=== PATIENT | male | born 1940 | race Hispanic/Latino ===

== ENCOUNTER 2018-03-30 15:07 | Inpatient (IN) | payer MEDICARE ==
[~2018-03-30] VITALS: Ht 162.6 cm; Wt 77.2 kg
[2018-03-30] MEDS ORDERED: SODIUM CHLORIDE 0.9% 1000ML 1,000 ML IV STA (15:17)
[2018-03-30] MEDS ORDERED: KETOROLAC TROMETHAMINE 30 MG/ML VIAL IV STA (15:17)
[2018-03-30] MEDS ORDERED: TAMSULOSIN HCL0.4 MG PO (15:25)
[2018-03-30] MEDS ORDERED: LOSARTAN POTASS25 MG PO (15:25)
[2018-03-30 15:50] LABS: BASOPHILS % 0.5 % (0.0-1.0); EOSINOPHILS % 0.5 % (0.0-6.0); HEMATOCRIT 45.6 % (38.2-49.6); HEMOGLOBIN 16.5 g/dL (14.0-18.0); LYMPHOCYTES # (AUTO) 1.8 (1.0-3.2); LYMPHOCYTES % 21.1 % (18.0-39.1); MEAN CORPUSCULAR HEMOGLOBIN 32.9 pg (28-32); MEAN CORPUSCULAR HGB CONC 36.2 g/dL (31-35); MEAN CORPUSCULAR VOLUME 90.8 fL (81-99); MONOCYTES # (AUTO) 0.7 (0.2-0.8); MONOCYTES % 7.7 % (4.4-11.3); NEUTROPHILS # (AUTO) 5.9 (2.1-6.9); NEUTROPHILS % 69.8 % (38.7-80.0); PLATELET COUNT 248 x10e3/uL (140-360); RED BLOOD COUNT 5.02 x10e6/uL (4.3-5.7); RED CELL DISTRIBUTION WIDTH 12.4 % (11.7-14.4)
[2018-03-30 15:54] LABS: CLARITY,URINE HAZY (CLEAR); COLOR,URINE ORANGE (YELLOW); LEUKOCYTE ESTERASE ,URINE NEGATIVE (NEGATIVE); NITRITE,URINE NEGATIVE (NEGATIVE); PROTEIN,URINE DIPSTICK 2+ (NEGATIVE)
[2018-03-30 15:55] LABS: BACTERIA,URINE FEW /HPF; BILIRUBIN,URINE 2+ (NEGATIVE); EPITHELIAL CELLS,URINE FEW /LPF; KETONES,URINE 1+ (NEGATIVE); URINE UROBILINOGEN 8 mg/dL (0.2 - 1)
[2018-03-30 16:05] LABS: ALANINE AMINOTRANSFERASE 110 IU/L (0-55); ALBUMIN 3.8 g/dL (3.5-5.0); ALBUMIN/GLOBULIN RATIO 1.1 (0.8-2.0); ALKALINE PHOSPHATASE 71 IU/L (40-150); AMYLASE 42 U/L (25-125); ANION GAP 13.8 mmol/L (8-16); BLOOD UREA NITROGEN 20 mg/dL (7-26); BUN/CREATININE RATIO 24 (6-25); CALCIUM 9.4 mg/dL (8.4-10.2); CARBON DIOXIDE 25 mmol/L (22-29); CHLORIDE 101 mmol/L (98-107); CREATININE, SERUM 0.84 mg/dL (0.72-1.25); EST GLOMERULAR FILTRATION RATE > 60 ML/MIN (60-); GLUCOSE 113 mg/dL (74-118); LIPASE 40 U/L (8-78); POTASSIUM 3.8 mmol/L (3.5-5.1); SODIUM 136 mmol/L (136-145)
--- NOTE | 2018-03-30 17:27 | Diagnostic Imaging Report ---
EXAMINATION: CT of the abdomen and pelvis with contrast. TECHNIQUE: Spiral CT images of the abdomen and pelvis were performed from the lung bases to the lesser trochanters after the intravenous administration of 100 cc of Isovue 370 and the oral administration of water. Coronal and sagittal reformatted images were obtained. COMPARISON: None. CLINICAL HISTORY:Diarrhea, vomiting, abdominal pain DISCUSSION: ABDOMEN/PELVIS: LOWER THORAX:Unremarkable. HEPATOBILIARY: Scattered well-circumscribed fluid density lesions in the hepatic parenchyma, with the largest located in hepatic segment V measuring 6.1 x 5.6 x 6.4 cm, consistent with simple cysts. No intrahepatic biliary ductal dilation. Mild dilation of the common bile duct, which measures approximately 10 mm at the tete hepatis. No radiopaque intraluminal filling defects. Normal contour and tapering to the ampulla. GALLBLADDER: Cholecystectomy clips. SPLEEN: No splenomegaly. PANCREAS: No focal masses or ductal dilatation. ADRENALS: No adrenal nodules. KIDNEYS/URETERS: No hydronephrosis, stones, or solid mass lesions. PELVIC ORGANS/BLADDER: Bladder is unremarkable. Prostatic enlargement with central dystrophic calcifications.. PERITONEUM/RETROPERITONEUM: No free air or fluid. LYMPH NODES: No intra-abdominal, retroperitoneal, pelvic or inguinal lymphadenopathy. VESSELS: The celiac trunk,superior and inferior mesenteric and bilateral renal arteries are patent The portal, superior mesenteric and splenic veins are patent. Atherosclerotic calcification of the abdominal aorta and vessels. GI TRACT: Oral contrast is noted in the large bowel, likely from prior exam, as no positive oral contrast was given for this examination. Multiple mildly to moderately dilated air and fluid-filled loops of small bowel are noted in the abdomen involving predominantly the proximal and mid ileum, with maximal measurement of 3.9 cm. The distal ileum including the terminal ileum are decompressed. There is no well-defined transition point, with gradual tapering to normal caliber noted in the mid to distal ileum at the anterior peritoneal cavity (series 2, images 57-65). Large bowel is normal in caliber. Extensive diverticulosis predominantly involving the descending and sigmoid colon, without diverticulitis. Appendix is identified and normal in caliber. BONES AND SOFT TISSUE: No aggressive lytic lesions. Soft tissues are grossly unremarkable. No soft tissue abnormalities. IMPRESSION: 1. Mildly to moderately dilated air and fluid-filled loops of proximal and mid ileum, with gradual tapering to normal caliber in the mid to distal ileum at the anterior peritoneal cavity without a definite transition point. No focal lesion is identified. This is suggestive of ileus. 2. Colonic diverticulosis, without diverticulitis. 3. Hepatic simple cysts, with the largest measuring approximately 6.4 cm. Signed by: Dr. Sandeep Mayer M.D. on 03/30/2018 5:24 PM
[2018-03-30] MEDS ORDERED: MORPHINE SULFATE 2 MG/ML SYR IV PRN (18:45)
[2018-03-30] MEDS ORDERED: ONDANSETRON HCL INJ 2 MG/ML VIAL IV PRN (18:45)
[2018-03-30] MEDS ORDERED: MORPHINE SULFATE INJ 4 MG/ML INJ IV PRN (19:00)
[2018-03-30] MEDS ORDERED: HYDRALAZINE HCL 20 MG/ML VIAL IV PRN (19:15)
[2018-03-30] MEDS ORDERED: LORAZEPAM INJ 2 MG/ML VIAL IV PRN (19:15)
[2018-03-30] MEDS ORDERED: IOPAMIDOL 370 MG/ML 200 ML INFUS..BTL INJ ONE (19:27)
[2018-03-30] MEDS ORDERED: SODIUM CHLORIDE 0.9% 50ML 50 ML ONE (19:27)
[2018-03-30] MEDS: PIPERACILLIN/TAZO 2.25 GM 50 ML IV SCH (19:31)
[2018-03-30] MEDS: D5.45%NS/KCL 20MEQ 1,000 ML IV SCH (19:31)
[2018-03-30] MEDS ORDERED: SODIUM CHLORIDE 0.9% 1000ML 1,000 ML ONE (19:35)
[2018-03-30] MEDS: METRONIDAZOLE 500MG/NS 100ML IV SCH (20:05)
--- NOTE | 2018-03-30 20:06 | History and Physical ---
CHIEF COMPLAINT: Abdominal distention, nausea and vomiting. HISTORY OF PRESENT ILLNESS: The patient is a 77-year-old man. He has a history of a prior cholecystectomy. He notes intermittent abdominal pain for 4 to 5 days as well as some diarrhea. Over the past 2 days, he has had more abdominal distention and has not moved his bowels. He does not complain of fevers. PAST SURGICAL HISTORY: Status post cholecystectomy. PAST MEDICAL HISTORY: Hypertension. SOCIAL HISTORY: The patient has never been a smoker. He is not a drinker. He has no recent travel. FAMILY HISTORY: Family history is noncontributory. ALLERGIES: THE PATIENT IS ALLERGIC TO CLINDAMYCIN AND IBUPROFEN. REVIEW OF SYSTEMS: The patient does not have any fevers. There is no headache. He has no neck pain. He is not complaining of sore throat. He has no cough or difficulty breathing. He denies chest pain. He does have some abdominal distention as well as nausea and vomiting as well as some diarrhea. He has no leg edema. He has no focal neurological complaints. PHYSICAL EXAMINATION VITAL SIGNS: The patient is febrile. The blood pressure 171/90, pulse is 78, saturation is 97%. HEENT: Shows no facial swelling or erythema. The nasal mucosa is normal. The oropharynx is normal. LYMPHATIC: Shows no submandibular, cervical, or supraclavicular adenopathy. NECK: Shows no JVD or thyromegaly. There is no nuchal rigidity. CARDIAC: Reveals regular rate and rhythm with normal S1 and S2. There are no murmurs or rubs. RESPIRATORY: Auscultation of lungs reveals clear breath sounds bilaterally. There is no wheezing. ABDOMEN: Distended. It is soft. He has no focal tenderness. EXTREMITIES: He has no leg edema. NEUROLOGIC: He has no focal neurological abnormalities. LABORATORY DATA: White blood cell count is 8.4 and hemoglobin 16.5. The platelet count is 248. The BUN to creatinine ratio is 20 to 0.84 and other electrolytes are within normal limits. Total bilirubin is 2.3, AST is 82, and ALT is 110. RADIOGRAPHIC DATA: Abdominal pelvic CT scan shows [id number] dilated loops of small intestine consistent with an ileus. IMPRESSION 1. Ileus versus small bowel obstruction. 2. Elevated bilirubin. 3. Nausea and vomiting leading to dehydration. 4. Hypertension. PLAN 1. IV fluids. 2. IV antibiotics. 3. Surgical and GI consultation 4. Control blood pressure as needed. Job#: [id number] GREG
--- OUTSIDE RECORDS SUMMARY | 2018-03-30 20:29 | XMS REPORT ---
Author Author [facility] Address Unknown Phone Unavailable Care Team Providers [facility] Safety Officer Name Role Phone Gregory SALCIDO Unavailable Unavailable Problems This patient has no known problems. Allergies, Adverse Reactions, Alerts This patient has no known allergies or adverse reactions. Medications This patient has no known medications. Results Test Description Test Time Test Comments Text Results Atomic Results Result Comments CT ABDOMEN/PELVIS W 2018-03-30 17:09:00 [place] [address] Patient Name: RADHA CLARK MR #: [id number] : 1940 Age/Sex: 77/M Req #: [id number] Adm Physician: Ordered by: CATRACHITO SALCIDO MD Report #: [id number] Location: ER Room/Bed: Procedure: [id number] CT/CT ABDOMEN/PELVIS W Exam Date: 03/30/18 Exam Time: 1643 REPORT STATUS: Signed EXAMINATION: CT of the abdomen and pelvis with vicki guerrero. TECHNIQUE: Spiral CT images of the abdomen and pelvis were performed from the lung bases to the lesser trochanters after the intravenous administration of 100 cc of Isovue 370 and the oral administration of water. Coronal and sagittal reformatted images were obtained. COMPARISON: None. CLINICAL HISTORY:Diarrhea, vomiting, abdominal pain DISCUSSION: ABDOMEN/PELVIS: LOWER THORAX:Unremarkable. HEPATOBILIARY: Scattered well-circumscribed fluid density lesions in the hepatic parenchyma, with the largest located in hepatic segment V measuring 6.1 x 5.6 x 6.4 cm, consistent with simple cysts. No intrahepatic biliary ductal dilation. Mild dilation of the common bile duct, which measures approximately 10 mm at the tete hepatis. No radiopaque intraluminal filling defects. Normal contour and tapering to the ampulla. GALLBLADDER: Cholecystectomy clips. SPLEEN: No splenomegaly. PANCREAS: No focal masses or ductal dilatation. ADRENALS: No adrenal nodules. KIDNEYS/URETERS: No hydronephrosis, stones, or solid mass lesions. PELVIC ORGANS/BLADDER: Bladder is unremarkable. Prostatic enlargement with central dystrophic calcifications.. PERITONEUM/RETROPERITONEUM: No free air or fluid. LYMPH NODES: No intra- abdominal, retroperitoneal, pelvic or inguinal lymphadenopathy. VESSELS: The celiac trunk,superior and inferior mesenteric and bilateral renal arteries are patent The portal, superior mesenteric and splenic veins are patent. Atherosclerotic calcification of the abdominal aorta and vessels. GI TRACT: Oral contrast is noted in the large bowel, likely from prior exam, as no positive oral contrast was given for this examination. Multiple mildly to moderately dilated air and fluid-filled loops of small bowel are noted in the abdomen involving predominantly the proximal and mid ileum, with maximal measurement of 3.9 cm. The distal ileum including the terminal ileum are decompressed. There is no well-defined transition point, with gradual tapering to normal caliber noted in the mid to distal ileum at the anterior peritoneal cavity (series 2, images 57-65). Large bowel is normal in caliber. Extensive diverticulosis predominantly involving the descending and sigmoid colon, without diverticulitis. Appendix is identified and normal in caliber. BONES AND SOFT TISSUE: No aggressive lytic lesions. Soft tissues are grossly unremarkable. No soft tissue abnormalities. IMPRESSION: 1. Mildly to moderately dilated air and fluid-filled loops of proximal and mid ileum, with gradual tapering to normal caliber in the mid to distal ileum at the anterior peritoneal cavity without a definite transition point. No focal lesion is identified. This is suggestive of ileus. 2. Colonic diverticulosis, without diverticulitis. 3. Hepatic simple cysts, with the largest measuring approximately 6.4 cm. Signed by: Dr. Don Mayer M.D. on 03/30/2018 5:24 PM Dictated By: DON MAYER MD 23 Transcribed By: RUSTY on 03/30/181723 COPY TO: CATRACHITO SALCIDO MD
[2018-03-30 20:46] LABS: BASOPHILS # (AUTO) 0.1 (0.0-0.1); BASOPHILS % 0.6 % (0.0-1.0); EOSINOPHILS % 0.4 % (0.0-6.0); HEMATOCRIT 41.3 % (38.2-49.6); HEMOGLOBIN 14.6 g/dL (14.0-18.0); LYMPHOCYTES # (AUTO) 2.2 (1.0-3.2); LYMPHOCYTES % 22.9 % (18.0-39.1); MEAN CORPUSCULAR HEMOGLOBIN 32.4 pg (28-32); MEAN CORPUSCULAR HGB CONC 35.4 g/dL (31-35); MEAN CORPUSCULAR VOLUME 91.8 fL (81-99); MONOCYTES # (AUTO) 0.8 (0.2-0.8); MONOCYTES % 8.4 % (4.4-11.3); NEUTROPHILS # (AUTO) 6.4 (2.1-6.9); NEUTROPHILS % 67.3 % (38.7-80.0); PLATELET COUNT 211 x10e3/uL (140-360); RED CELL DISTRIBUTION WIDTH 12.4 % (11.7-14.4)
[2018-03-30 21:15] VITALS: BP 184/86
--- NOTE | 2018-03-30 21:18 | NUR ---
Pt received from the ER. Pt A&O and in no apparent distress. Pt on RA and no tele. All safety measures ensured, bed alarm on, and pt call bel near. Pt encouraged to use call claire for assistance.
[2018-03-30 21:25] VITALS: BP 184/86
[2018-03-31] VITALS (9 sets, daily range): BP systolic 125–144; BP diastolic 52–71
[2018-03-31] MEDS: METRONIDAZOLE 500MG/NS 100ML IV SCH ×5 (00:36→23:01)
[2018-03-31] MEDS: PIPERACILLIN/TAZO 2.25 GM 50 ML IV SCH ×5 (01:39→17:22)
[2018-03-31 05:25] LABS: BASOPHILS # (AUTO) 0.1 (0.0-0.1); BASOPHILS % 1.2 % (0.0-1.0); EOSINOPHILS # (AUTO) 0.1 (0.0-0.4); EOSINOPHILS % 1.2 % (0.0-6.0); HEMOGLOBIN 13.9 g/dL (14.0-18.0); LYMPHOCYTES # (AUTO) 2.3 (1.0-3.2); LYMPHOCYTES % 27.8 % (18.0-39.1); MEAN CORPUSCULAR HEMOGLOBIN 32.3 pg (28-32); MEAN CORPUSCULAR HGB CONC 35.6 g/dL (31-35); MEAN CORPUSCULAR VOLUME 90.7 fL (81-99); MONOCYTES # (AUTO) 0.9 (0.2-0.8); MONOCYTES % 10.3 % (4.4-11.3); NEUTROPHILS # (AUTO) 4.9 (2.1-6.9); NEUTROPHILS % 58.8 % (38.7-80.0); PLATELET COUNT 218 x10e3/uL (140-360); RED CELL DISTRIBUTION WIDTH 12.4 % (11.7-14.4)
[2018-03-31 05:47] LABS: ALANINE AMINOTRANSFERASE 97 IU/L (0-55); ALBUMIN 3.2 g/dL (3.5-5.0); ALBUMIN/GLOBULIN RATIO 1.1 (0.8-2.0); ALKALINE PHOSPHATASE 59 IU/L (40-150); ANION GAP 11.8 mmol/L (8-16); BLOOD UREA NITROGEN 17 mg/dL (7-26); BUN/CREATININE RATIO 18 (6-25); CALCIUM 8.6 mg/dL (8.4-10.2); CARBON DIOXIDE 24 mmol/L (22-29); CHLORIDE 105 mmol/L (98-107); CREATININE, SERUM 0.92 mg/dL (0.72-1.25); EST GLOMERULAR FILTRATION RATE > 60 ML/MIN (60-); GLUCOSE 101 mg/dL (74-118); POTASSIUM 3.8 mmol/L (3.5-5.1); SODIUM 137 mmol/L (136-145)
--- NOTE | 2018-03-31 06:45 | NUR ---
Walking rounds and report received from night nurse. POC discussed. Patient was instructed to call for assistance as needed and verbalized understanding. Call claire within reach.
[2018-03-31] MEDS: D5.45%NS/KCL 20MEQ 1,000 ML IV SCH ×2 (07:53→18:35)
--- NOTE | 2018-03-31 12:27 | Consultation ---
DATE OF CONSULTATION: March 31, 2018 HISTORY: A 77 years old who presented to the hospital because of several days' history of abdominal pain along with some diarrhea. Patient has also had some nausea and vomiting. The workup so far revealed that the CBC was okay. The chemistry showed elevated serum liver function tests with bilirubin of 2.3, AST of 82, and ALT 110. He had a CAT scan of abdomen and pelvis, which shows possible ileus or early small-bowel obstructions along with diverticulosis as well as a liver cyst. He denies any history of alcohol use or any history of hepatitis in the past. MEDICAL PROBLEMS: Significant for history of hypertension, status post cholecystectomy. ALLERGIES: TO CLINDAMYCIN AND IBUPROFEN. SOCIAL HISTORY: Denies any alcohol use. FAMILY HISTORY: Noncontributory. REVIEW OF SYSTEMS: Denies any chest pain. No shortness of breath. Denies any dysphagia or odynophagia. Denies any dysuria, hematuria or any kind of syncopal episode. PHYSICAL EXAMINATION GENERAL: Awake, alert, appears to be stable, not in acute distress at this point. VITAL SIGNS: Afebrile currently with stable vital signs. HEENT: Normocephalic, atraumatic. Sclerae are anicteric. NECK: Supple. HEART: Sounds regular. ABDOMEN: Soft. Somewhat distended. Tympanitic to percussion. EXTREMITIES: Show no clubbing. LAB VALUES: As of today, CBC is okay. Chemistry; bilirubin 2.0, AST of 55, ALT of 37. CAT scan as mentioned before. IMPRESSION 1. Abdominal pain, nausea, vomiting, and also diarrhea. Rule out possibility of gastroenteritis with possible ileus. 2. Elevated liver function tests, rule out hepatitis. RECOMMENDATIONS: I will obtain an liver x-ray today. Follow labs, also ultrasounds. Hepatitis workup. Follow up clinically. Job#: [id number] LPA cc:RADHA CHILEL MD
--- NOTE | 2018-03-31 13:21 | Diagnostic Imaging Report ---
KUB - 2 views Clinical History: Follow-up ileus versus small bowel obstruction. Comparison: CT abdomen/pelvis 03/30/2018. Findings: Persistent mildly dilated mid abdominal small bowel loops, measuring up to 4 cm. Non-dilated distal ileal loops. Air and contrast is seen within a nondistended colon. No evidence of free intracranial air. Cholecystectomy clips are present. No acute bony findings. Impression: Persistent mildly dilated small bowel loops. Air and contrast seen within nondistended colon. Findings could represent low-grade partial small bowel obstruction or ileus and continued follow-up is suggested. Signed by: Dr. Nikolay Harris MD on 03/31/2018 1:18 PM
--- NOTE | 2018-03-31 14:42 | NUR ---
Nutrition Screen Note RD Recommendation for Physician: Advance diet as tolerated Plan of Care: RD following, monitoring for adequacy and tolerance Nutrition reason for involvement: Nutrition Risk Trigger- MST Primary Diagnose(s): acute abdominal pain with ileus/SBO Ht:64 in Wt:180lbs BMI:30.9 kg/m2 IBW:130lbs RD Assessment:(03/31/2018) Initial encounter with patient. Pt was NPO at time of visit and diet has been advanced to a clear liquid diet. Pt was wanting to know when he was going to be able to start eating. No BM in over 3 days. Pt denies any nausea. Current Diet: Clear liquid Malnutrition Evaluation (03/31/2018) The patient does not meet criteria for a specified degree of malnutrition at this time. Will re-evaluate at follow-up as appropriate. Diet Education Needs Assessment: Diet education not indicated. Diet Adequacy: Not meeting calorie needs, Not meeting protein needs) Tolerance: NPO Nutrition Care Level: moderate Sunny Watts RD, LD, CNSC
--- NOTE | 2018-03-31 15:30 | Consultation ---
DATE OF CONSULTATION: March 31, 2018 DICTATION ENDS ABRUPTLY Job#: [id number] PUN
[2018-03-31 17:15] LABS: OCCULT BLOOD STOOL NEGATIVE (NEGATIVE)
[2018-03-31] MEDS: LOSARTAN POTASSIUM 25 MG TAB PO SCH (17:19)
--- NOTE | 2018-03-31 18:30 | NUR ---
Dr. Celis making rounds. POC discussed and all questions answered by .
--- NOTE | 2018-03-31 18:58 | NUR ---
Report received and walking rounds complete. Pt resting in bed watching tv and in no apparent distress. All safety measures ensured, bed alarm on, and pt call claire near. Pt encouraged to use call claire for assistance.
[2018-03-31] MEDS: TAMSULOSIN HCL 0.4 MG CAP PO SCH (20:43)
[2018-04-01] MEDS: PIPERACILLIN/TAZO 2.25 GM 50 ML IV SCH ×4 (00:34→18:11)
[2018-04-01] MEDS: METRONIDAZOLE 500MG/NS 100ML IV SCH ×4 (05:11→23:10)
[2018-04-01 05:30] VITALS: BP 119/59
--- NOTE | 2018-04-01 05:58 | NUR ---
Pt off unit for radiology
[2018-04-01 05:59] LABS: ALBUMIN 3.2 g/dL (3.5-5.0); BILIRUBIN,DIRECT 0.6 mg/dL (0.0-0.5)
--- NOTE | 2018-04-01 06:18 | Diagnostic Imaging Report ---
ABDOMEN ACUTE SERIES W/PA CXR Clinical history: Ileus Technique: AP view abdomen, supine and upright, PA chest Comparison: Previous day Findings: Abdomen: Persistent mild gaseous distention of small bowel. Gas is seen within decompressed colon. No evidence of free air. Cholecystectomy clips. Other: Normal cardiac silhouette. Prominent mediastinal fat. No consolidation or edema. No effusion or pneumothorax. Impression: Stable findings which may reflect partial obstruction. Signed by: Dr Eduarda Armijo MD on 04/01/2018 6:15 AM
[2018-04-01 07:00] VITALS: BP 138/68
--- NOTE | 2018-04-01 07:04 | NUR ---
Report given to oncoming nurse
--- NOTE | 2018-04-01 08:00 | NUR ---
Patient ambulating in room without any complaints.
[2018-04-01] MEDS ORDERED: BISACODYL 5 MG TAB EC PO NR (08:30)
[2018-04-01] MEDS: LOSARTAN POTASSIUM 25 MG TAB PO SCH ×2 (08:37→17:16)
[2018-04-01] MEDS: D5.45%NS/KCL 20MEQ 1,000 ML IV SCH ×2 (10:33→23:53)
[2018-04-01 11:24] VITALS: BP 155/82
[2018-04-01 15:22] LABS: C DIFFICILE TOXIN A&B AMP PROB NEGATIVE (NEGATIVE)
[2018-04-01 16:00] VITALS: BP 162/79
--- NOTE | 2018-04-01 17:00 | NUR ---
U/S tech at the bedside.
--- NOTE | 2018-04-01 18:32 | Diagnostic Imaging Report ---
EXAM: Complete Abdominal Ultrasound INDICATION: ^Elevated LFT COMPARISON: CT abdomen and pelvis 03/30/2018 TECHNIQUE: Transverse and longitudinal images of the upper abdomen were obtained. FINDINGS: Liver: Size: 13.8 cm in the right midclavicular line, normal Appearance: Normal echogenicity, smooth contour Mass: 5.2 x 4.4 x 3.6 cm cystic, echoic lesion in the right hepatic lobe. Spleen: Size: 10.4 cm in length, normal Echogenicity: Normal Mass: No focal masses Gallbladder: Absent. Sonographic Chi's Sign: Negative Bile Ducts: Intrahepatic Ducts: No dilatation Extrahepatic Ducts: Common bile duct measures 0.3 cm, no dilatation Pancreas: Visualized portions of the neck and proximal body are unremarkable. Kidneys: Length: Right 11.2 cm Left 11.0 cm Echogenicity: Normal Collecting System: No hydronephrosis Stone: None Cyst/Mass: None Vessels: Aorta: Visualized portions are normal Inferior Vena Cava: Visualized portions are normal Main Portal Vein: 0.8 cm, normal size with hepatopetal flow. Free Fluid: No ascites or pleural effusion IMPRESSION: 1. 5.2 cm simple cystic lesion in the right hepatic lobe, previously described on CT dated 03/30/2018 2. Status post cholecystectomy. Signed by: Dr. Sandeep Mayer M.D. on 04/01/2018 6:29 PM
--- NOTE | 2018-04-01 18:40 | NUR ---
Report given to oncoming shift. Call claire within reach.
--- NOTE | 2018-04-01 18:58 | NUR ---
Report received and walking rounds complete. Pt resting in bed and in apparent distress. Pt at bedside. All safety measures ensured, bed alarm on, and pt call claire near. Pt encouraged to use call claire for assistance.
[2018-04-01 19:43] VITALS: BP 154/73
[2018-04-01] MEDS: TAMSULOSIN HCL 0.4 MG CAP PO SCH (20:16)
[2018-04-01] MEDS ORDERED: ZOLPIDEM TARTRATE 10 MG TAB PO PRN (21:00)
[2018-04-02] VITALS: BP 145/69
[2018-04-02] MEDS: PIPERACILLIN/TAZO 2.25 GM 50 ML IV SCH ×2 (00:31→06:25)
[2018-04-02 04:00] VITALS: BP 152/68
--- NOTE | 2018-04-02 04:48 | NUR ---
radiology on unit
[2018-04-02] MEDS: METRONIDAZOLE 500MG/NS 100ML IV SCH ×2 (05:06→13:20)
[2018-04-02 05:51] LABS: ALBUMIN 3.2 g/dL (3.5-5.0); BILIRUBIN,DIRECT 0.5 mg/dL (0.0-0.5)
--- NOTE | 2018-04-02 05:52 | Diagnostic Imaging Report ---
ABDOMEN-1VIEW (KUB) Clinical history: Follow-up ileus versus partial small bowel obstruction Technique: AP view abdomen Comparison: 04/01/2018 Findings: Limited by motion artifact and portable technique. Persistent though slightly decreased mildly dilated loops of small bowel in the left upper abdomen. Gas is seen in nondilated distal small bowel and colon. Impression: Persistent though mildly improved findings of partial small bowel obstruction. Signed by: Dr Eduarda Armijo MD on 04/02/2018 5:49 AM
--- NOTE | 2018-04-02 07:00 | NUR ---
Report given to oncoming nurse. Walking rounds complete.
[2018-04-02 07:32] VITALS: BP 142/68
--- NOTE | 2018-04-02 08:05 | NUR ---
patient sitting up in recliner, denies any abd pain, no distress noted, at bed side
[2018-04-02] MEDS: LOSARTAN POTASSIUM 25 MG TAB PO SCH ×2 (08:20→16:48)
[2018-04-02 08:22] VITALS: BP 142/68
[2018-04-02] MEDS: D5.45%NS/KCL 20MEQ 1,000 ML IV SCH (14:07)
--- NOTE | 2018-04-02 14:59 | NUR ---
SOCIAL WORK INITIAL ASSESSMENT Videogame Designer to bedside to discuss plan of care with patient/family. CM/SW role and care transitions discussed. Anticipated discharge plan discussed along with duration of care. CM/SW discussed patients right to make decisions in care. CM/SW work hours given. Patient lives: IN OWN HOUSE WITH Admit/Transfer: VIA ED FROM HOME POA/Emergency contact: DAFNE SCHUSTER [phone] Current/Previous Home Health: NONE PCP/Follow-up Care: [facility] Current/Previous DME: NONE Other Services: NONE Employment Status: RETIRED Areas of Concerns: NONE Referral Needs: NONE Education Needs: NONE IMM/HENDERSON given and signed (if applicable): NA Goal for discharge: RETURN HOME INDEPENDENTLY CM/SW left business card at the bedside with contact information. Name and number was also written on the patients whiteboard. Patient verbalized understanding of discussion. CM will follow-up with ongoing discharge and transition of care needs.
--- NOTE | 2018-04-02 17:06 | Discharge Summary ---
DISCHARGE DIAGNOSES 1. Gastroenteritis. 2. Ileus. 3. Hypertension. 4. Hepatitis of unclear etiology. CONSULTING PHYSICIANS 1. Dr. Jewell of gastroenterology. 2. Dr. Robinson Celis of general surgery. RADIOGRAPHIC DATA: Abdominal ultrasound shows simple cysts in the right hepatic lobe. He also has changes from prior cholecystectomy. CT scan of the abdomen and pelvis shows mild to moderately dilated filled loops of proximal and mid-ileum suggestive of ileus. The patient also has diverticulosis. HISTORY OF PRESENT ILLNESS: The patient is a 77-year-old man. He has a prior history of prior cholecystectomy. He came in complaining of intermittent abdominal pain for 4 or 5 days, as well as some diarrhea. He had noticed more abdominal distention and some nausea. HOSPITAL COURSE: The patient was admitted. His initial CT scan showed changes consistent with either a partial small-bowel obstruction or an ileus. He was n.p.o. and started on antibiotics. He was seen by surgery and gastroenterology. He improved with treatment and started moving his bowels. Both GI and general surgery agreed the patient had findings consistent with gastroenteritis. DISPOSITION: Patient will be discharged home, and will follow up with Dr. Schmitz in 3 days. RADHA SCHMITZ MD Job#: [id number] CT
--- NOTE | 2018-04-02 17:54 | NUR ---
Dr Fay Maldonado had rounds, no prescription as per Dr Schmitz and patient can f/up with him in 3 days. Patient discharged home, IV canula removed with tip intact. No ss of infiltration, family at bed side giving ride to patient home, patient aware about f/up appointments, denies any pain, not in any distress, got all personnel belongings with him. Transported via wheelchair to [facility]
[2018-04-02 22:39] LABS: ALPHA-1-ANTITRYPSIN 152 mg/dL (90-200)
== END 2018-04-02 18:10 | disposition home or self-care (01) | DRG 390 ==
LOC: ER 15:07 → ERHOLD 20:27 → INTOOBSV 20:27 → IMCU 21:49 → OBSVTOIN 03-31 13:47
PROVIDERS: ADMIT Internal Medicine Critical Care Medicine; ATTEND Internal Medicine Critical Care Medicine
DX: K56.7 Ileus, unspecified (principal); K56.600 Partial intestinal obstruction, unspecified as to cause; K52.9 Noninfective gastroenteritis and colitis, unspecified; I10 Essential (primary) hypertension; K75.9 Inflammatory liver disease, unspecified; K76.89 Other specified diseases of liver; E86.0 Dehydration
CPT/HCPCS: 36415; 74018; 74022; 74177; 76700; 80053; 80076; 81001; 82103; 82150; 82270; 82390; 83690; 85025; 86039; 86255; 86803; 87045; 87340; 87493; 96361; 99284; G0378; J2270; J2405; J2543; J7030; Q9967

== ENCOUNTER 2020-03-14 11:07 | Emergency (ER) | payer MEDICARE ==
[~2020-03-14] VITALS: Ht 167.6 cm; Wt 76.7 kg
[~2020-03-14 11:07] MED LIST: LOSARTAN POTASS25 MG PO; TAMSULOSIN HCL0.4 MG PO
== END 2020-03-14 11:36 | disposition home or self-care (01) ==
LOC: FSED 11:19
DX: L02.214 Cutaneous abscess of groin (principal); I10 Essential (primary) hypertension; E78.5 Hyperlipidemia, unspecified
CPT/HCPCS: 10060; 99283